=== PATIENT | female | born 1955 | race American Indian/Alaskan Native ===

== ENCOUNTER 2016-11-23 22:42 | Emergency (ER) | payer SELFPAY ==
[2016-11-23] MEDS ORDERED: DUONEB *Not for PRN Use IH ONE (22:56)
[2016-11-24 00:10] LABS: Anion Gap 21 mmol/L; Blood Urea Nitrogen 22 mg/dL (7-17); Calcium 9.6 mg/dL (8.4-10.2); Carbon Dioxide 22 mmol/L (22-30); Chloride 103.3 mmol/L (98-107); Glucose 135 mg/dL (65-100); Potassium 3.2 mmol/L (3.6-5.0); Sodium 143 mmol/L (137-145)
[2016-11-24 00:31] LABS: Basophils % (Auto) 0.9 % (0.0-1.8); Eosinophils % (Auto) 2.7 % (0.0-4.3); Hematocrit 41.4 % (30.3-42.9); Hemoglobin 13.9 gm/dl (10.1-14.3); Mean Corpuscular HGB Conc 34 % (30-34); Mean Corpuscular Hemoglobin 31 pg (28-32); Mean Corpuscular Volume 93 fl (79-97); Platelet Count 223 K/mm3 (140-440); Red Blood Count 4.45 M/mm3 (3.65-5.03); Red Cell Distribution Width 13.5 % (13.2-15.2); White Blood Count 9.5 K/mm3 (4.5-11.0)
[2016-11-24] MEDS ORDERED: DUONEB *Not for PRN Use IH ONE (03:09)
--- NOTE | 2016-11-24 06:29 | Emergency Department Report ---
ED General Adult HPI - General Chief complaint: Adult Asthma Stated complaint: SOB/ASTHMA Time Seen by Provider: 11/24/16 06:12 Source: patient Mode of arrival: Ambulatory Limitations: Language Barrier - History of Present Illness Initial comments: Patient is a 61-year-old female past mental history of asthma who presents with shortness of breath and wheezing has been going on today. Patient states that she's tried her inhaler at home but she has not had any relief. Patient states that her shortness of breath is moderate and worse with exertion better at rest. Patient denies having any chest pain or any nausea. Patient states that her triggers her smoke and weather change. Patient has never been intubated before for her asthma. Severity scale (0 -10): 3 - Related Data Previous Rx's Medication Instructions Recorded Last Taken Type ALBUTEROL Inhaler [ProAir HFA 2 puff IH QID PRN #1 inhalation 11/24/16 Unknown Rx Inhaler] predniSONE [Deltasone] 20 mg PO BID #10 tablet 11/24/16 Unknown Rx Allergies Allergy/AdvReac Type Severity Reaction Status Date / Time No Known Allergies Allergy Verified 11/23/16 22:49 ED Review of Systems ROS: Stated complaint: SOB/ASTHMA Other details as noted in HPI Constitutional: denies: chills, fever Eyes: denies: eye pain, eye discharge, vision change ENT: denies: ear pain, throat pain Respiratory: shortness of breath, wheezing. denies: cough Cardiovascular: denies: chest pain, palpitations Endocrine: no symptoms reported Gastrointestinal: denies: abdominal pain, nausea, diarrhea Genitourinary: denies: urgency, dysuria, discharge Musculoskeletal: denies: back pain, joint swelling, arthralgia Skin: denies: rash, lesions Neurological: denies: headache, weakness, paresthesias Psychiatric: denies: anxiety, depression Hematological/Lymphatic: denies: easy bleeding, easy bruising ED Past Medical Hx - Past Medical History Previous Medical History?: Yes Hx Asthma: Yes - Surgical History Past Surgical History?: No - Social History Smoking Status: Never Smoker Substance Use Type: None - Medications Home Medications: Home Medications Medication Instructions Recorded Confirmed Last Taken Type ALBUTEROL Inhaler [ProAir HFA 2 puff IH QID PRN #1 inhalation 11/24/16 Unknown Rx Inhaler] predniSONE [Deltasone] 20 mg PO BID #10 tablet 11/24/16 Unknown Rx ED Physical Exam - General Limitations: Language Barrier General appearance: alert, in no apparent distress - Head Head exam: Present: atraumatic, normocephalic - Eye Eye exam: Present: normal appearance - ENT ENT exam: Present: mucous membranes moist - Neck Neck exam: Present: normal inspection - Respiratory Respiratory exam: Present: wheezes. Absent: respiratory distress - Cardiovascular Cardiovascular Exam: Present: regular rate, normal rhythm. Absent: systolic murmur, diastolic murmur, rubs, gallop - GI/Abdominal GI/Abdominal exam: Present: soft, normal bowel sounds - Extremities Exam Extremities exam: Present: normal inspection - Back Exam Back exam: Present: normal inspection - Neurological Exam Neurological exam: Present: alert, oriented X3 - Psychiatric Psychiatric exam: Present: normal affect, normal mood - Skin Skin exam: Present: warm, dry, intact, normal color. Absent: rash ED Course Vital Signs 11/23/16 11/23/16 11/24/16 22:45 22:49 03:57 Temperature 97.3 F L Pulse Rate 99 H 98 H Respiratory 24 14 Rate Blood Pressure 101/66 101/66 Blood Pressure [Left] O2 Sat by Pulse 96 96 Oximetry 11/24/16 11/24/16 11/24/16 04:00 04:30 05:00 Temperature Pulse Rate 101 H 101 H 95 H Respiratory 22 18 15 Rate Blood Pressure 114/64 98/56 101/57 Blood Pressure [Left] O2 Sat by Pulse 95 91 94 Oximetry 11/24/16 11/24/16 11/24/16 05:30 06:01 07:14 Temperature 97.9 F Pulse Rate 91 H 85 90 Respiratory 16 16 14 Rate Blood Pressure 94/55 107/59 Blood Pressure 100/61 [Left] O2 Sat by Pulse 95 100 Oximetry - Reevaluation(s) Reevaluation #1: 11/24/16 09:06 Patient is better after breathing treatment and steroids I will send the patient home. ED Medical Decision Making - Lab Data Result diagrams: 11/23/16 23:28 11/23/16 23:28 Lab Results 11/23/16 11/23/16 Range/Units 23:28 23:28 WBC 9.5 (4.5-11.0) K/mm3 RBC 4.45 (3.65-5.03) M/mm3 Hgb 13.9 (10.1-14.3) gm/dl Hct 41.4 (30.3-42.9) % MCV 93 (79-97) fl MCH 31 (28-32) pg MCHC 34 (30-34) % RDW 13.5 (13.2-15.2) % Plt Count 223 (140-440) K/mm3 Lymph % (Auto) 28.8 (13.4-35.0) % [place] % (Auto) 6.1 (0.0-7.3) % Eos % (Auto) 2.7 (0.0-4.3) % Baso % (Auto) 0.9 (0.0-1.8) % Lymph # 2.7 (1.2-5.4) K/mm3 [place] # 0.6 (0.0-0.8) K/mm3 Eos # 0.3 (0.0-0.4) K/mm3 Baso # 0.1 (0.0-0.1) K/mm3 Seg Neutrophils % 61.5 (40.0-70.0) % Seg Neutrophils # 5.9 (1.8-7.7) K/mm3 Sodium 143 (137-145) mmol/L Potassium 3.2 L (3.6-5.0) mmol/L Chloride 103.3 (98-107) mmol/L Carbon Dioxide 22 (22-30) mmol/L Anion Gap 21 mmol/L BUN 22 H (7-17) mg/dL Creatinine 0.5 L (0.7-1.2) mg/dL Estimated GFR > 60 ml/min BUN/Creatinine Ratio 44.00 % Glucose 135 H (65-100) mg/dL Calcium 9.6 (8.4-10.2) mg/dL - EKG Data -: EKG Interpreted by Id - Radiology Data Radiology results: report reviewed, image reviewed Chest x-ray: Shows no acute cardiopulmonary disease - Medical Decision Making Chief medical diagnosis: Asthma exacerbation Differential medical diagnosis: Allergic rhinitis, bronchitis CBC, CMP, chest x-ray, breathing treatment and IV steroids. Patient is feeling better after breathing treatment. Critical care attestation.: If time is entered above; I have spent that time in minutes in the direct care of this critically ill patient, excluding procedure time. ED Disposition Clinical Impression: Asthma exacerbation Disposition: DC-01 TO HOME OR SELFCARE Is pt being admited?: No Does the pt Need Aspirin: No Condition: Stable Instructions: Asthma (ED) Prescriptions: ALBUTEROL Inhaler [ProAir HFA Inhaler] 2 puff IH QID PRN #1 inhalation PRN Reason: Shortness Of Breath predniSONE [Deltasone] 20 mg PO BID #10 tablet Referrals: PRIMARY CAREMD [Primary Care Provider] - 3-5 Days KOMAL JARAMILLO MD [Staff Physician] - 3-5 Days
[2016-11-24] MEDS ORDERED: PROVENTIL IH ONE (06:30)
--- NOTE | 2016-11-24 07:48 | XRay Report ---
ROUTINE CHEST, TWO VIEWS: HISTORY: Cough, chest tightness. The trachea, heart, mediastinal contour, lung miller and bony thorax are unremarkable. IMPRESSION: Unremarkable chest x-ray.
[2016-11-24 09:08] VITALS: BP 92/51
== END 2016-11-24 09:22 | disposition home or self-care (01) ==
LOC: ED 22:42
DX: J45.901 Unspecified asthma with (acute) exacerbation (principal)
CPT/HCPCS: 36415; 71020; 80048; 85025; 96374; 99284; J2930

== ENCOUNTER 2019-05-08 12:17 | Outpatient (CLI) | payer OTHER ==
[2019-05-08 12:32] LABS: Basophils # (Auto) 0.1 K/mm3 (0.0-0.1); Basophils % (Auto) 1.3 % (0.0-1.8); Eosinophils # (Auto) 0.2 K/mm3 (0.0-0.4); Eosinophils % (Auto) 3.9 % (0.0-4.3); Hematocrit 42.9 % (30.3-42.9); Hemoglobin 14.1 gm/dl (10.1-14.3); Lymphocytes # (Auto) 1.9 K/mm3 (1.2-5.4); Lymphocytes % (Auto) 36.8 % (13.4-35.0); Mean Corpuscular HGB Conc 33 % (30-34); Mean Corpuscular Volume 93 fl (79-97); Monocytes # (Auto) 0.4 K/mm3 (0.0-0.8); Platelet Count 256 K/mm3 (140-440); Red Blood Count 4.63 M/mm3 (3.65-5.03); Red Cell Distribution Width 12.9 % (13.2-15.2)
[2019-05-08 12:44] LABS: Alanine Aminotransferase 16 units/L (7-56); Albumin 4.3 g/dL (3.9-5); BUN/Creatinine Ratio 32; Blood Urea Nitrogen 16 mg/dL (7-17); Calcium 9.2 mg/dL (8.4-10.2); Chol/HDL Ratio 2.61 %; HDL Cholesterol 67 mg/dL (40-59); Hemolysis Index 15; LDL Cholesterol,Direct 90 mg/dL (50-130)
== END 2019-05-08 12:18 | disposition home or self-care (01) ==
LOC: LAB 12:17
PROVIDERS: ATTEND Internal Medicine
DX: Z00.00 Encounter for general adult medical examination without abnormal findings (principal); Z13.1 Encounter for screening for diabetes mellitus; Z13.220 Encounter for screening for lipoid disorders; Z13.29 Encounter for screening for other suspected endocrine disorder
CPT/HCPCS: 36415; 80053; 80061; 83036; 84443; 85025

== ENCOUNTER 2019-09-12 14:16 | Outpatient (CLI) | payer OTHER | END 2019-09-12 14:17 | disposition home or self-care (01) | LOC: SPVWC 14:16 | PROVIDERS: ATTEND Internal Medicine | DX: Z12.31 Encounter for screening mammogram for malignant neoplasm of breast (principal) | CPT/HCPCS: 77067 ==

== ENCOUNTER 2021-01-18 16:17 | Emergency (ER) | payer OTHER ==
[2021-01-18] MEDS ORDERED: DEXAMETHASONE 4 MG TAB PO ONE (18:13)
[2021-01-18] MEDS ORDERED: ALBUTEROL 2.5 MG/3 ML NEBU IH ONE (18:13)
[2021-01-18] MEDS ORDERED: IPRATROPIUM 0.02% NEBU 2.5 ML IH ONE (18:13)
--- NOTE | 2021-01-18 18:17 | Emergency Department Report ---
ED Shortness of Breath HPI - General Chief Complaint: Adult Asthma Stated Complaint: CUT Time Seen by Provider: 01/18/21 18:09 Source: patient Mode of arrival: Ambulatory Limitations: No Limitations - History of Present Illness Initial Comments: Patient presents with a 2-day history of shortness of breath associate with cough and congestion. She had fevers and chills. Patient states that her chest hurts and her lungs hurt. She states that she does not have a headache, but she does have muscle aches and body aches. She does not feel well. Patient has had no hematemesis or coffee-ground emesis. There is no hemoptysis. She has had nausea without vomiting. She has not had diarrhea. Patient denies urinary symptoms. She has had no coronavirus exposures. She is vaccinated against Covid. Patient has had no other sick contacts. She is not been around anyone with influenza. She does have a history of asthma. She has been using her inhalers. They have helped a little. - Related Data Previous Rx's Medication Instructions Recorded Last Taken Type Albuterol Mdi (or & Nicu Only) 2 puff IH QID PRN #1 inhalation 01/18/21 Unknown Rx [ProAir HFA Inhaler] Benzonatate [Tessalon Perles] 100 mg PO Q8HR #20 capsule 01/18/21 Unknown Rx predniSONE [Deltasone] 20 mg PO BID #10 tablet 01/18/21 Unknown Rx Allergies Allergy/AdvReac Type Severity Reaction Status Date / Time No Known Allergies Allergy Verified 01/18/21 17:20 ED Review of Systems ROS: Stated complaint: CUT Other details as noted in HPI Comment: All other systems reviewed and negative Constitutional: fever Eyes: denies: eye pain ENT: denies: throat pain Respiratory: no symptoms reported, see HPI Cardiovascular: as per HPI, chest pain Endocrine: denies: unexplained weight loss Gastrointestinal: denies: abdominal pain Genitourinary: denies: dysuria Musculoskeletal: denies: back pain Skin: denies: rash Neurological: denies: weakness Hematological/Lymphatic: denies: easy bruising ED Past Medical Hx - Past Medical History Hx Asthma: Yes - Family History Family history: asthma - Social History Smoking Status: Never Smoker Substance Use Type: None - Medications Home Medications: Home Medications Medication Instructions Recorded Confirmed Last Taken Type Albuterol Mdi (or & Nicu Only) 2 puff IH QID PRN #1 inhalation 01/18/21 Unknown Rx [ProAir HFA Inhaler] Benzonatate [Tessalon Perles] 100 mg PO Q8HR #20 capsule 01/18/21 Unknown Rx predniSONE [Deltasone] 20 mg PO BID #10 tablet 01/18/21 Unknown Rx ED Physical Exam - General Limitations: No Limitations, Other (Pulse ox was noted and normal) General appearance: alert, in distress (Mild) - Head Head exam: Present: atraumatic, normocephalic, normal inspection - Eye Eye exam: Present: normal appearance, EOMI. Absent: scleral icterus - ENT ENT exam: Present: normal exam, mucous membranes moist - Neck Neck exam: Present: normal inspection. Absent: meningismus - Respiratory Respiratory exam: Present: respiratory distress (Mild), wheezes (Bilateral), prolonged expiratory - Cardiovascular Cardiovascular Exam: Present: regular rate, normal rhythm - GI/Abdominal GI/Abdominal exam: Present: soft. Absent: tenderness - Extremities Exam Extremities exam: Present: normal capillary refill. Absent: pedal edema, calf tenderness - Back Exam Back exam: Absent: CVA tenderness (R), CVA tenderness (L) - Neurological Exam Neurological exam: Present: alert, oriented X3, CN II-XII intact, normal gait, reflexes normal - Psychiatric Psychiatric exam: Present: normal affect, normal mood - Skin Skin exam: Present: warm, dry ED Course - Reevaluation(s) Reevaluation #1: 01/18/21 18:16 Continuous albuterol neb and x-ray were ordered. Old records reviewed. Reevaluation #2: 01/18/21 19:03 Patient was discharged ED Medical Decision Making - Medical Decision Making Patient presented with difficulty breathing and respiratory symptoms which had symptoms that are consistent with asthma exacerbation and upper respiratory infection. This appears to be viral in nature. There is no radiographic evidence of pneumonia. She certainly does not have evidence of congestive heart failure. There is no pedal edema. Has no orthopnea. There is no CHF on x- ray. Patient has no unilateral leg pain. There is no pleuritic chest pain. She is not hypoxic. I do not believe this represents PE. I do not believe this is an angina equivalent. Patient was treated symptomatically and referred for outpatient evaluation and follow-up. Critical Care Time: No Critical care attestation.: If time is entered above; I have spent that time in minutes in the direct care of this critically ill patient, excluding procedure time. ED Disposition Clinical Impression: Acute URI Asthma exacerbation Qualifiers: Asthma severity: moderate Asthma persistence: persistent Qualified Code(s): J45.41 - Moderate persistent asthma with (acute) exacerbation Disposition: HOME / SELF CARE / HOMELESS Is pt being admited?: No Condition: Stable Instructions: Asthma, Adult, Viral Respiratory Infection, [id number] Additional Instructions: Drink water. Return for problems. Use Tylenol for fever. Follow-up with your regular doctor for recheck. Prescriptions: predniSONE [Deltasone] 20 mg PO BID #10 tablet Albuterol Mdi (or & Nicu Only) [ProAir HFA Inhaler] 2 puff IH QID PRN #1 inhalation PRN Reason: Shortness Of Breath Benzonatate [Tessalon Perles] 100 mg PO Q8HR #20 capsule Referrals: PRIMARY MD LITO [Referring] - 3-5 Days LINCOLN CHOU MD [Staff Physician] - 3-5 Days
--- NOTE | 2021-01-18 18:41 | XRay Report ---
CHEST 2 VIEWS INDICATION / CLINICAL INFORMATION: dyspnea. COMPARISON: Chest x-ray 12/03/2016 FINDINGS: SUPPORT DEVICES: None. HEART / MEDIASTINUM: No significant abnormality. LUNGS / PLEURA: Calcified right lower lobe granuloma, unchanged No significant pulmonary or pleural a bnormality. No pneumothorax. ADDITIONAL FINDINGS: No significant additional findings. IMPRESSION: 1. No acute findings. Signer Name: Kolby Varela MD Signed: 01/18/2021 6:36 PM Workstation Name: [id number]
[2021-01-18 20:29] VITALS: BP 125/62
--- NOTE | 2021-01-20 08:39 | Electrocardiograph Report ---
[facility] Test Date: 2021-01-18 Test Time: 17:24:23 Pat Name: VIJAYA ABDALLA Department: Room: Gender: F [employer] Driver: VALORIE : 1955 Requested By: SINDHU RICO Order Number: [id number] Reading MD: Marvin Bentley Measurements Intervals [place] Rate: 79 P: 75 MN: 142 QRS: 15 QRSD: 77 T: 91 QT: 380 QTc: 435 Interpretive Statements Sinus rhythm No previous ECG available for comparison Electronically Signed On 01-20-2021 8:39:21 EST by Marvin Bentley
== END 2021-01-18 23:00 | disposition home or self-care (01) ==
LOC: ED 16:17
DX: J06.9 Acute upper respiratory infection, unspecified (principal); J45.41 Moderate persistent asthma with (acute) exacerbation
CPT/HCPCS: 71046; 93005; 94640; 99283; J8540

== ENCOUNTER 2021-05-08 13:01 | Emergency (ER) | payer OTHER ==
[2021-05-08] MEDS ORDERED: ONDANSETRON 4 MG ODT TAB PO ONE (14:13)
[2021-05-08] MEDS ORDERED: SODIUM CHLORIDE 0.9% 1000 ML 1,000 ML IV ONE (14:44)
[2021-05-08] MEDS ORDERED: MORPHINE 4 MG/1 ML INJ IV ONE (14:44)
--- NOTE | 2021-05-08 14:45 | Emergency Department Report ---
ED General Adult HPI - General Chief complaint: Abdominal Pain Stated complaint: ABDOMINAL PAIN AND VOMITTING Time Seen by Provider: 05/08/21 14:12 Source: patient, RN notes reviewed, old records reviewed Mode of arrival: Ambulatory Limitations: No Limitations - History of Present Illness Initial comments: The patient is a 65-year-old female, who presents to the ER today with a complaint of lower abdominal pain, most prominent in her left lower quadrant. The abdominal pain is sharp and increases with palpation and decreases with rest. She denies vomiting, diarrhea and urinary symptoms. She denies additional injuries and complaints. She does not believe she has had pain like this in the past -: Gradual, days(s) Location: abdomen Quality: aching Consistency: constant Improves with: rest Worsens with: movement - Related Data Previous Rx's Medication Instructions Recorded Last Taken Type Albuterol Mdi (or & Nicu Only) 2 puff IH QID PRN #1 inhalation 01/18/21 Unknown Rx [ProAir HFA Inhaler] Benzonatate [Tessalon Perles] 100 mg PO Q8HR #20 capsule 01/18/21 Unknown Rx predniSONE [Deltasone] 20 mg PO BID #10 tablet 01/18/21 Unknown Rx Acetaminophen [Non-Aspirin Extra 500 mg PO Q6HR PRN #30 tablet 05/08/21 Unknown Rx Strength] Ibuprofen [Motrin] 400 mg PO Q8H PRN #30 tablet 05/08/21 Unknown Rx Ondansetron [Zofran Odt] 4 mg PO Q8HR PRN #20 tab.rapdis 05/08/21 Unknown Rx Allergies Allergy/AdvReac Type Severity Reaction Status Date / Time No Known Allergies Allergy Verified 01/18/21 17:20 ED Review of Systems ROS: Stated complaint: ABDOMINAL PAIN AND VOMITTING Other details as noted in HPI Constitutional: denies: fever Eyes: denies: eye discharge ENT: denies: epistaxis Respiratory: denies: cough Cardiovascular: denies: chest pain Gastrointestinal: abdominal pain Genitourinary: denies: dysuria Musculoskeletal: denies: back pain Neurological: weakness Psychiatric: anxiety Hematological/Lymphatic: denies: easy bleeding ED Past Medical Hx - Past Medical History Hx Asthma: Yes - Social History Smoking Status: Never Smoker Substance Use Type: None - Medications Home Medications: Home Medications Medication Instructions Recorded Confirmed Last Taken Type Albuterol Mdi (or & Nicu Only) 2 puff IH QID PRN #1 inhalation 01/18/21 Unknown Rx [ProAir HFA Inhaler] Benzonatate [Tessalon Perles] 100 mg PO Q8HR #20 capsule 01/18/21 Unknown Rx predniSONE [Deltasone] 20 mg PO BID #10 tablet 01/18/21 Unknown Rx Acetaminophen [Non-Aspirin Extra 500 mg PO Q6HR PRN #30 tablet 05/08/21 Unknown Rx Strength] Ibuprofen [Motrin] 400 mg PO Q8H PRN #30 tablet 05/08/21 Unknown Rx Ondansetron [Zofran Odt] 4 mg PO Q8HR PRN #20 tab.rapdis 05/08/21 Unknown Rx ED Physical Exam - General Limitations: No Limitations General appearance: alert, anxious, in distress - Head Head exam: Present: atraumatic, normocephalic - Eye Eye exam: Present: normal appearance, EOMI. Absent: nystagmus - ENT ENT exam: Present: normal exam, normal orophraynx, mucous membranes moist, normal external ear exam - Neck Neck exam: Present: normal inspection, full ROM. Absent: tenderness, meningismus - Respiratory Respiratory exam: Present: normal lung sounds bilaterally. Absent: respiratory distress, wheezes, rales, rhonchi, stridor, decreased breath sounds - Cardiovascular Cardiovascular Exam: Present: regular rate, normal rhythm, normal heart sounds. Absent: bradycardia, tachycardia, irregular rhythm, systolic murmur, diastolic murmur, rubs, gallop - GI/Abdominal GI/Abdominal exam: Present: soft, tenderness, guarding. Absent: distended, rebound, rigid, pulsatile mass - Extremities Exam Extremities exam: Present: normal inspection, full ROM, other (2+ pulses noted i n the bilateral upper and lower extremities. There is no palpable cord. negative Homans sign. Muscular compartments are soft. The pelvis is stable.). Absent: pedal edema, calf tenderness - Back Exam Back exam: Present: normal inspection. Absent: tenderness, CVA tenderness (R), CVA tenderness (L), paraspinal tenderness, vertebral tenderness - Neurological Exam Neurological exam: Present: alert, other (No facial droop. Tongue midline. Extraocular movements intact bilaterally. Facial sensation intact to light touch in V1, V2, V3 distribution bilaterally. 5 and a 5 strength in 4 extremities. Sensation intact to light touch in 4 extremities.). Absent: motor sensory deficit - Psychiatric Psychiatric exam: Present: anxious - Skin Skin exam: Present: warm, dry, intact, normal color. Absent: rash ED Course Vital Signs 05/08/21 05/08/21 05/08/21 13:55 15:02 15:15 Temperature 97.7 F Pulse Rate 80 80 75 Respiratory 16 24 Rate Blood Pressure 119/63 Blood Pressure 127/71 [Left] O2 Sat by Pulse 100 100 Oximetry 05/08/21 05/08/21 05/08/21 15:30 15:45 16:00 Temperature Pulse Rate 79 72 58 L Respiratory 13 29 H 28 H Rate Blood Pressure 119/63 115/65 115/65 Blood Pressure [Left] O2 Sat by Pulse 100 99 100 Oximetry 05/08/21 05/08/21 05/08/21 16:16 16:30 16:46 Temperature Pulse Rate 60 57 L 61 Respiratory 29 H 33 H 21 Rate Blood Pressure 104/59 109/56 108/53 Blood Pressure [Left] O2 Sat by Pulse 100 99 90 Oximetry 05/08/21 05/08/21 05/08/21 17:11 17:45 18:01 Temperature Pulse Rate 74 Respiratory 21 Rate Blood Pressure 104/59 112/53 119/57 Blood Pressure 113/44 [Left] O2 Sat by Pulse 90 97 95 Oximetry 05/08/21 05/08/21 05/08/21 18:15 18:17 18:31 Temperature Pulse Rate 81 77 Respiratory 20 19 Rate Blood Pressure 109/68 117/68 Blood Pressure [Left] O2 Sat by Pulse 96 100 96 Oximetry 05/08/21 05/08/21 05/08/21 18:45 19:01 19:15 Temperature Pulse Rate 76 75 75 Respiratory 19 14 17 Rate Blood Pressure 117/66 111/58 113/76 Blood Pressure [Left] O2 Sat by Pulse 95 94 94 Oximetry 05/08/21 05/08/21 19:31 23:05 Temperature 98.4 F Pulse Rate 74 97 H Respiratory 16 19 Rate Blood Pressure 105/51 Blood Pressure 122/79 [Left] O2 Sat by Pulse 94 100 Oximetry - Reevaluation(s) Reevaluation #1: 05/08/21 16:01 Differential diagnosis, including but not limited to: Perforated viscus, colitis, diverticulitis, renal colic, complicated urinary tract infection Assessment and plan: 65-year-old female with suprapubic and predominately left lower quadrant abdominal pain, who is tender with voluntary guarding in the left lower quadrant. 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 I discussed this plan of care with the patient. She is agreeable to this plan of care. Reassessment 05/08/21 18:12 Feels improved. Laboratory studies unremarkable. Belly soft on repeat exam. CT scan abdomen pelvis negative for acute findings. Urinalysis pending 05/08/21 18:40 Care be transferred to the oncoming ER provider to follow-up on urinalysis. Patient feels improved. ED Medical Decision Making - Lab Data Result diagrams: 05/08/21 14:43 05/08/21 14:43 Vital Signs 05/08/21 13:55 Temperature 97.7 F Pulse Rate 80 Respiratory 16 Rate Blood Pressure 127/71 [Left] O2 Sat by Pulse 100 Oximetry Lab Results 05/08/21 05/08/21 Range/Units 14:43 14:51 WBC 11.7 H (4.5-11.0) K/mm3 RBC 4.54 (3.65-5.03) M/mm3 Hgb 14.6 H (10.1-14.3) gm/dl Hct 41.3 (30.3-42.9) % MCV 91 (79-97) fl MCH 32 (28-32) pg MCHC 35 H (30-34) % RDW 13.2 (13.2-15.2) % Plt Count 254 (140-440) K/mm3 PT 13.0 (12.2-14.9) Sec. INR 0.89 (0.87-1.13) Lab Results 05/08/21 05/08/21 05/08/21 Range/Units 14:43 14:43 14:51 WBC 11.7 H (4.5-11.0) K/mm3 RBC 4.54 (3.65-5.03) M/mm3 Hgb 14.6 H (10.1-14.3) gm/dl Hct 41.3 (30.3-42.9) % MCV 91 (79-97) fl MCH 32 (28-32) pg MCHC 35 H (30-34) % RDW 13.2 (13.2-15.2) % Plt Count 254 (140-440) K/mm3 PT 13.0 (12.2-14.9) Sec. INR 0.89 (0.87-1.13) Sodium 138 (137-145) mmol/L Potassium 4.2 (3.6-5.0) mmol/L Chloride 98.7 (98-107) mmol/L Carbon Dioxide 25 (22-30) mmol/L Anion Gap 19 mmol/L BUN 16 (7-17) mg/dL Creatinine 0.5 L (0.6-1.2) mg/dL Estimated GFR > 60 ml/min BUN/Creatinine Ratio 32 % Glucose 179 H (65-100) mg/dL Calcium 9.6 (8.4-10.2) mg/dL Magnesium 1.80 (1.7-2.3) mg/dL Total Bilirubin 1.00 (0.1-1.2) mg/dL AST 30 (5-40) units/L ALT 45 (7-56) units/L Alkaline Phosphatase 117 (35-129) units/L Total Creatine Kinase 57 (30-135) units/L Troponin T < 0.010 (0.00-0.029) ng/mL Total Protein 7.9 (6.3-8.2) g/dL Albumin 4.3 (3.9-5) g/dL Albumin/Globulin Ratio 1.2 % Lipase 27 (13-60) units/L - EKG Data -: EKG Interpreted by Tn EKG shows normal: sinus rhythm Rate: normal - EKG Data 05/08/21 16:00 The EKG is interpreted at 14: 54 Sinus rhythm, 84 bpm. Normal axis, normal intervals, QTC 4 1 4 ms, normal P wave axis. Low voltage high lateral leads. Not a STEMI - Radiology Data Radiology results: pending, report reviewed, image reviewed CT ABDOMEN AND PELVIS WITH CONTRAST HISTORY: acute llq pain COMPARISON: None TECHNIQUE: Routine abdominal and pelvic CT exam performed following intravenous contrast administration.. All CT scans at this location are performed using CT d ose reduction for ALARA by means of automated exposure control. FINDINGS: CT ABDOMEN: Lung Bases: No significant abnormality. Liver: No significant abnormality. Biliary: No significant abnormality. Spleen: No significant abnormality. Unenlarged. Pancreas: No significant abnormality. Adrenals: No s ignificant abnormality. Kidneys: No significant abnormality. Lymphatics: No lymphadenopathy. Vasculature: No significant abnormality. Bowel/Peritoneum: Nonobstructive bowel. Sigmoid diverticulosis without mesocolonic fat stranding. No free air. No free fluid. Normal appendix. CT PELVIC: : No significant abnormality. Lymphatics: No lymphadenopathy. Osseous Structures: No aggressive appearing osseous lesions. Additional Findings: None IMPRESSION: 1. No acute findings or findings to explain the patient's symptoms. Signer Name: Sheldon Lomeli MD Signed: 05/08/2021 4:39 PM Critical care attestation.: If time is entered above; I have spent that time in minutes in the direct care of this critically ill patient, excluding procedure time. ED Disposition Clinical Impression: Left lower quadrant abdominal pain Disposition: HOME / SELF CARE / HOMELESS Is pt being admited?: No Does the pt Need Aspirin: No Condition: Good Instructions: Abdominal Pain, Adult, Abdominal Pain (ED) Additional Instructions: Laboratory studies and CT scan of the abdomen pelvis today did not demonstrate any actionable findings. Please take the prescribed pain medications as needed and directed. Do not take MeTFORMIN medication for the next 2 days, if patient takes this medication. Please follow-up with a primary care doctor within the next 2 days for repeat checkup and evaluation. Please have your primary care physician contact the medical records department to obtain copies of laboratory studies and radiology studies. Please return to the emergency room right away with new pain, worsened pain, migration of pain, projectile vomiting, change in mental status, confusion, inability tolerate liquid feeds, new, worsened or different symptoms not present on the initial emergency room evaluation Prescriptions: Ibuprofen [Motrin] 400 mg PO Q8H PRN #30 tablet PRN Reason: Pain Acetaminophen [Non-Aspirin Extra Strength] 500 mg PO Q6HR PRN #30 tablet PRN Reason: Pain , Severe (7-10) Ondansetron [Zofran Odt] 4 mg PO Q8HR PRN #20 tab.rapdis PRN Reason: Nausea Referrals: [facility] [Provider Group] - 3-5 Days [facility] [Provider Group] - 3-5 Days
[2021-05-08 15:23] LABS: Hematocrit 41.3 % (30.3-42.9); Hemoglobin 14.6 gm/dl (10.1-14.3); Mean Corpuscular HGB Conc 35 % (30-34); Mean Corpuscular Volume 91 fl (79-97); Platelet Count 254 K/mm3 (140-440); Red Blood Count 4.54 M/mm3 (3.65-5.03); Red Cell Distribution Width 13.2 % (13.2-15.2)
[2021-05-08 15:33] LABS: INR 0.89 (0.87-1.13)
[2021-05-08 16:02] LABS: Alanine Aminotransferase 45 units/L (7-56); Albumin 4.3 g/dL (3.9-5); Blood Urea Nitrogen 16 mg/dL (7-17); Calcium 9.6 mg/dL (8.4-10.2); Hemolysis Index 13
[2021-05-08 16:03] LABS: BUN/Creatinine Ratio 32
[2021-05-08] MEDS ORDERED: HYDROmorphone 1 MG/1 ML INJ IV ONE (16:53)
--- NOTE | 2021-05-08 17:44 | Cat Scan Report ---
CT ABDOMEN AND PELVIS WITH CONTRAST HISTORY: acute llq pain COMPARISON: None TECHNIQUE: Routine abdominal and pelvic CT exam performed following intravenous contrast administrat ion.. All CT scans at this location are performed using CT dose reduction for ALARA by means of autom ated exposure control. FINDINGS: CT ABDOMEN: Lung Bases: No significant abnormality. Liver: No significant abnormality. Biliary: No significant abnormality. Spleen: No significant abnormality. Unenlarged. Pancreas: No significant abnormality. Adrenals: No significant abnormality. Kidneys: No significant abnormality. Lymphatics: No lymphadenopathy. Vasculature: No significant abnormality. Bowel/Peritoneum: Nonobstructive bowel. Sigmoid diverticulosis without mesocolonic fat stranding. No free air. No free fluid. Normal appendix. CT PELVIC: : No significant abnormality. Lymphatics: No lymphadenopathy. Osseous Structures: No aggressive appearing osseous lesions. Additional Findings: None IMPRESSION: 1. No acute findings or findings to explain the patient's symptoms. Signer Name: Sheldon Lomeli MD Signed: 05/08/2021 5:39 PM Workstation Name: [id number]
[2021-05-08 19:47] LABS: Bilirubin,Urine NEG (Negative); Blood,Urine NEG (Negative); Color,Urine Yellow (Yellow); Protein,Urine <15 mg/dL mg/dL (Negative); Urobilinogen,Urine < 2.0 mg/dL (<2.0)
[2021-05-08 19:51] LABS: RBC,Urine > 1.0 /HPF (0.0-6.0); WBC,Urine > 1.0 /HPF (0.0-6.0)
[2021-05-08 23:07] VITALS: BP 122/79
--- NOTE | 2021-05-09 11:52 | Electrocardiograph Report ---
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
== END 2021-05-08 23:07 | disposition home or self-care (01) ==
LOC: ED 13:01
DX: R10.32 Left lower quadrant pain (principal); J45.909 Unspecified asthma, uncomplicated; Z79.899 Other long term (current) drug therapy
CPT/HCPCS: 36415; 74177; 80053; 81001; 82550; 83690; 83735; 84484; 85027; 85610; 93005; 93010; 96361; 96374; 96375; 99284; J1170; J2270; J7030; Q9967; J3490; Q0162

== ENCOUNTER 2021-09-07 11:00 | Outpatient (CLI) | payer OTHER ==
[2021-09-07 11:27] LABS: Basophils # (Auto) 0.1 K/mm3 (0.0-0.1); Basophils % (Auto) 2.2 % (0.0-1.8); Eosinophils # (Auto) 0.2 K/mm3 (0.0-0.4); Eosinophils % (Auto) 3.7 % (0.0-4.3); Hematocrit 43.6 % (30.3-42.9); Hemoglobin 14.3 gm/dl (10.1-14.3); Lymphocytes # (Auto) 1.9 K/mm3 (1.2-5.4); Lymphocytes % (Auto) 36.5 % (13.4-35.0); Mean Corpuscular HGB Conc 33 % (30-34); Mean Corpuscular Volume 93 fl (79-97); Monocytes # (Auto) 0.4 K/mm3 (0.0-0.8); Monocytes % (Auto) 8.4 % (0.0-7.3); Platelet Count 218 K/mm3 (140-440); Red Blood Count 4.71 M/mm3 (3.65-5.03); Red Cell Distribution Width 13.4 % (13.2-15.2)
[2021-09-07 12:21] LABS: Alanine Aminotransferase 20 units/L (7-56); Albumin 4.5 g/dL (3.9-5); Blood Urea Nitrogen 18 mg/dL (7-17); Calcium 9.5 mg/dL (8.4-10.2); Chol/HDL Ratio 2.17 %; HDL Cholesterol 84 mg/dL (40-59); Hemolysis Index 3; LDL Cholesterol,Direct 101 mg/dL (50-130)
[2021-09-07 12:49] LABS: BUN/Creatinine Ratio 36
[2021-09-09 16:49] LABS: Vitamin D, 25-OH, D2 8 ng/mL
== END 2021-09-07 11:01 | disposition home or self-care (01) ==
LOC: LABHHL 11:00
PROVIDERS: ATTEND Internal Medicine
DX: Z00.00 Encounter for general adult medical examination without abnormal findings (principal); R73.03 Prediabetes; E66.01 Morbid (severe) obesity due to excess calories; E55.9 Vitamin D deficiency, unspecified; R53.83 Other fatigue
CPT/HCPCS: 36415; 80053; 80061; 82306; 83036; 84443; 85025